=== PATIENT | female | born 1950 | race Two or more races ===

== ENCOUNTER → 2023-07-07 | Outpatient (CLI) | payer OTHER ==
[2023-07-07 10:53] LABS: Basophils # (auto) 0.1 10 ^3/uL (0-0.2); Basophils % (auto) 0.6 % (0.0-2.0); Eosinophils # (auto) 0.3 10 ^3/uL (0-0.8); Eosinophils % (auto) 3.7 % (0.0-7.0); Hematocrit 39.3 % (36.0-46.0); Hemoglobin 13.1 g/dL (12.2-16.2); Lymphocytes # (auto) 2.4 10 ^3/uL (0.4-5.4); Lymphocytes % (auto) 28.1 % (10.0-50.0); Mean Corpuscular Hgb Conc. 33.2 g/dL (32.0-36.0); Mean Corpuscular Volume 84.2 fL (80.0-100.0); Monocytes # (auto) 0.7 10 ^3/uL (0-1.3); Monocytes % (auto) 8.4 % (0.0-12.0); Neutrophils # (auto) 5.1 10 ^3/uL (1.6-8.6); Neutrophils % (auto) 59.2 % (37.0-80.0); Red Blood Cells 4.67 10^6/uL (4.0-5.20); Red Cell Distribution Width 14.8 % (11.8-14.3); White Blood Cell 8.6 10^3/uL (4.4-10.8)
[2023-07-07 11:03] LABS: Urine Bacteria FEW /hpf (None Seen); Urine Blood Negative /uL (Negative); Urine Clarity CLOUDY (Clear); Urine Color Yellow (Yellow); Urine Protein, UAD TRACE (Negative); Urine Urobilinogen Normal (Negative); Urine WBC 73 /hpf (0 - 5)
[2023-07-07 11:29] LABS: Alanine Aminotransferase 25 U/L (7-40); Albumin 4.4 g/dL (3.2-4.8); Alkaline Phosphatase 66 U/L (46-116); Anion Gap 11 (5-15); Aspartate Aminotransferase 24 U/L (13-40); BUN/Creatinine Ratio 12.2 (10.0-20.0); Bilirubin, Total 0.4 mg/dL (0.2-1.0); Blood Urea Nitrogen 10 mg/dL (9-23); Calcium 9.5 mg/dL (8.5-10.1); Carbon Dioxide 25 mmol/L (20-30); Chloride 104 mmol/L (98-107); Cholesterol 189 mg/dL (< 200); Glucose 134 mg/dL (74-106); HDL Cholesterol 62 mg/dL (40-59); LDL Cholesterol 126 mg/dL (< 100); Potassium 3.9 mmol/L (3.5-5.1); Sodium 140 mmol/L (136-145); Triglycerides 91 mg/dL (< 150)
[2023-07-07 11:31] LABS: Erythrocyte Sedimentation Rate 23 mm/hr (0-20)
== END | disposition home or self-care (01) ==
LOC: LAB 10:07
PROVIDERS: ATTEND Internal Medicine
DX: I10 Essential (primary) hypertension (principal); R73.03 Prediabetes
CPT/HCPCS: 36415; 80053; 80061; 81001; 83036; 84439; 84443; 85025; 85652

== ENCOUNTER → 2024-01-03 | Outpatient (CLI) | payer OTHER ==
[2024-01-03 11:13] LABS: Basophils # (auto) 0.1 10 ^3/uL (0-0.2); Basophils % (auto) 0.8 % (0.0-2.0); Eosinophils # (auto) 0.3 10 ^3/uL (0-0.8); Hematocrit 42.2 % (36.0-46.0); Lymphocytes # (auto) 2.3 10 ^3/uL (0.4-5.4); Mean Corpuscular Hemoglobin 27.2 pg (28.0-32.0); Mean Corpuscular Hgb Conc. 33.1 g/dL (32.0-36.0); Mean Corpuscular Volume 82.3 fL (80.0-100.0); Monocytes # (auto) 0.5 10 ^3/uL (0-1.3); Neutrophils # (auto) 4.2 10 ^3/uL (1.6-8.6); Neutrophils % (auto) 57.2 % (37.0-80.0); Nucleated Red Blood Cells % 0.1 %; Red Blood Cells 5.13 10^6/uL (4.0-5.20); Red Cell Distribution Width 14.6 % (11.8-14.3); White Blood Cell 7.3 10^3/uL (4.4-10.8)
[2024-01-03 11:42] LABS: Alanine Aminotransferase 14 U/L (7-40); Albumin 4.5 g/dL (3.2-4.8); Alkaline Phosphatase 76 U/L (46-116); Anion Gap 8 (5-15); Aspartate Aminotransferase 10 U/L (13-40); BUN/Creatinine Ratio 16.4 (10.0-20.0); Blood Urea Nitrogen 11 mg/dL (9-23); Calcium 9.9 mg/dL (8.5-10.1); Carbon Dioxide 27 mmol/L (20-30); Chloride 106 mmol/L (98-107); Glucose 113 mg/dL (74-106); LDL Cholesterol 159 mg/dL (< 100); Potassium 3.6 mmol/L (3.5-5.1); Sodium 141 mmol/L (136-145); Triglycerides 127 mg/dL (< 150)
[2024-01-03 11:43] LABS: Bilirubin, Total 0.5 mg/dL (0.2-1.0); Cholesterol 224 mg/dL (< 200); HDL Cholesterol 60 mg/dL (40-59); Total Protein 7.2 g/dL (5.7-8.2)
[2024-01-03 12:07] LABS: Erythrocyte Sedimentation Rate 70 mm/hr (0-20)
== END | disposition home or self-care (01) ==
LOC: LAB 10:50
PROVIDERS: ATTEND Internal Medicine
DX: Z12.11 Encounter for screening for malignant neoplasm of colon (principal); I10 Essential (primary) hypertension; E03.9 Hypothyroidism, unspecified
CPT/HCPCS: 36415; 80053; 80061; 82270; 84439; 84443; 85025; 85652

== ENCOUNTER 2024-12-26 11:16 | Outpatient (CLI) | payer OTHER ==
[2024-12-26 11:29] LABS: Urine Bacteria None Seen /hpf (None Seen)
[2024-12-26 11:39] LABS: Basophils # (auto) 0.1 10 ^3/uL (0-0.2); Basophils % (auto) 0.8 % (0.0-2.0); Eosinophils # (auto) 0.4 10 ^3/uL (0-0.8); Eosinophils % (auto) 4.9 % (0.0-7.0); Hematocrit 41.3 % (36.0-46.0); Lymphocytes # (auto) 2.8 10 ^3/uL (0.4-5.4); Lymphocytes % (auto) 36.5 % (10.0-50.0); Mean Corpuscular Hemoglobin 27.7 pg (28.0-32.0); Mean Corpuscular Hgb Conc. 33.8 g/dL (32.0-36.0); Mean Corpuscular Volume 81.9 fL (80.0-100.0); Monocytes # (auto) 0.5 10 ^3/uL (0-1.3); Monocytes % (auto) 6.7 % (0.0-12.0); Neutrophils # (auto) 3.9 10 ^3/uL (1.6-8.6); Neutrophils % (auto) 51.1 % (37.0-80.0); Nucleated Red Blood Cells % 0.1 %; Platelet Count (auto) 245 10^3/uL (140-450); Red Blood Cells 5.04 10^6/uL (4.0-5.20); Red Cell Distribution Width 14.4 % (11.8-14.3); White Blood Cell 7.5 10^3/uL (4.4-10.8)
[2024-12-26 11:55] LABS: Urine Blood Negative /uL (Negative); Urine Clarity Turbid (Clear); Urine Color Light-Yellow (Yellow); Urine Protein, UAD Negative (Negative); Urine Specific Gravity 1.012 (1.001-1.035); Urine Squamous Epithelial Cell FEW /hpf (<5); Urine Urobilinogen Normal (Negative); Urine WBC 34 /HPF (0-5)
[2024-12-26 12:12] LABS: Erythrocyte Sedimentation Rate 19 mm/hr (0-20)
[2024-12-26 12:42] LABS: Alanine Aminotransferase 12 U/L (7-40); Albumin 4.6 g/dL (3.2-4.8); Alkaline Phosphatase 81 U/L (46-116); Anion Gap 11 (5-15); Aspartate Aminotransferase 19 U/L (<34); BUN/Creatinine Ratio 16.9 (10.0-20.0); Bilirubin, Total 0.4 mg/dL (0.2-1.0); Blood Urea Nitrogen 13 mg/dL (9-23); Calcium 9.6 mg/dL (8.7-10.4); Carbon Dioxide 27 mmol/L (20-31); Chloride 106 mmol/L (98-107); Potassium 3.8 mmol/L (3.5-5.1); Sodium 144 mmol/L (136-145); Total Protein 7.2 g/dL (5.7-8.2)
[2024-12-26 12:43] LABS: Glucose 110 mg/dL (74-106)
[2024-12-26 13:09] LABS: Triglycerides 113 mg/dL (< 150)
[2024-12-26 13:10] LABS: LDL Cholesterol 164 mg/dL (< 100)
[2024-12-26 13:11] LABS: HDL Cholesterol 53 mg/dL (40-59)
[2024-12-26 13:12] LABS: Cholesterol 221 mg/dL (< 200)
== END 2024-12-26 17:00 | disposition home or self-care (01) ==
LOC: LAB 11:16
PROVIDERS: ATTEND Internal Medicine
DX: I10 Essential (primary) hypertension (principal); E03.9 Hypothyroidism, unspecified
CPT/HCPCS: 36415; 80053; 80061; 81001; 84439; 84443; 85025; 85652

== ENCOUNTER 2025-05-19 10:35 | Outpatient (CLI) | payer OTHER | END 2025-05-19 17:00 | disposition home or self-care (01) | LOC: LAB 10:35 | PROVIDERS: ATTEND Internal Medicine | DX: N83.8 Other noninflammatory disorders of ovary, fallopian tube and broad ligament (principal); R19.00 Intra-abdominal and pelvic swelling, mass and lump, unspecified site | CPT/HCPCS: 86304 ==

== ENCOUNTER 2025-05-30 13:07 | Outpatient (CLI) | payer OTHER ==
[2025-05-30 14:07] LABS: Blood Urea Nitrogen 19.0 mg/dL (9-23)
== END 2025-05-30 17:00 | disposition home or self-care (01) ==
LOC: LAB 13:07
PROVIDERS: ATTEND Internal Medicine
DX: R19.6 Halitosis (principal)
CPT/HCPCS: 36415; 82565; 84520

== ENCOUNTER 2025-06-03 12:26 | Outpatient (CLI) | payer OTHER ==
--- NOTE | 2025-06-04 16:47 | DVHSR ---
APPROVED REPORT EXAM: Two-dimensional and M-mode echocardiogram with Doppler and color Doppler. INDICATION Hypertension DIMENSIONS LVDd (3.8-5.7cm) LA (2D) 3.1 (1.9-4.0cm) Aortic Root 2.9 (2.0-3.7cm) LVDs (2.5-4.0cm) LA (MM) (1.9-4.0cm) Aortic Cusp Exc 1.5 (1.5-2.0cm) EF (%) 61.0 (55-70%) Rt. Atrium 2.9 (1.9-4.0cm) Asc. Aorta cm Mitral Valve Mitral Mitral Stenosis E wave 0.81m/s MV Mean GR. mmHg A wave 1.07m/s MV Peak GR. mmHg E/A ratio 0.8 2D MVA cm2 DECEL Time 187ms PRESS 1/2 Time ms Aortic Valve Aortic Valve Aortic Stenosis V1 1.10m/s AO Mean GR. 4mmHg V2 1.38m/s AO Peak GR. 8mmHg LVOT Diameter 1.7 (1.8-2.4cm) Doppler JEAN-PIERRE 1.81cm2 Pulmonic Valve V2 0.91m/s Tricuspid Valve TR Velocity 2.70m/s RVSP 29mmHg Other Information Technically limited study due to body habitus. Conclusion Technically good study sinus rhythm. Normal chamber sizes. Valves are normal. EF of 60% with normal RV function. Mild tricuspid regurgitation. No pericardial effusion masses or vegetations.
== END 2025-06-03 17:00 | disposition home or self-care (01) ==
LOC: XYW 12:26
PROVIDERS: ATTEND Internal Medicine
DX: Z01.810 Encounter for preprocedural cardiovascular examination (principal); I07.1 Rheumatic tricuspid insufficiency; I10 Essential (primary) hypertension
CPT/HCPCS: 93306